=== PATIENT | female | born 1985 | race Two or more races ===

== ENCOUNTER 2016-10-05 15:04 | Emergency (ER) | payer OTHER ==
[~2016-10-05] VITALS: Ht 157.5 cm; Wt 56.7 kg
[2016-10-05 15:20] VITALS: BP 115/59
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
[2016-10-05 17:40] VITALS: BP 108/43
[2016-10-05] MEDS ORDERED: CYCLOBENZAPRINE10 MG ORAL (18:10)
[2016-10-05] MEDS ORDERED: IBUPROFEN600 MG ORAL (18:10)
[2016-10-05 19:36] VITALS: BP 115/53
[2016-10-05 20:04] VITALS: BP 115/53
--- NOTE | 2016-10-06 11:12 | Diagnostic Imaging Report ---
Indication: Back pain Findings: 2 views of the thoracic spine were obtained. Normal bony mineralization and alignment are demonstrated. Vertebral body heights and intervertebral disc heights are normal. The posterior elements including the facets are unremarkable. Soft tissues are unremarkable. Cholecystectomy clips are noted. Impression: Negative thoracic spine series
== END 2016-10-05 20:04 | disposition home or self-care (01) ==
LOC: EDBD 15:04 → EMR 15:52
DX: S13.4XXA Sprain of ligaments of cervical spine, initial encounter (principal); S80.02XA Contusion of left knee, initial encounter; S20.219A Contusion of unspecified front wall of thorax, initial encounter; V43.52XA Car driver injured in collision with other type car in traffic accident, initial encounter; Y92.410 Unspecified street and highway as the place of occurrence of the external cause; Y99.8 Other external cause status
CPT/HCPCS: 71010; 72070; 81025; 99284